=== PATIENT | male | born 1960 | race Caucasian/White ===

== ENCOUNTER 2016-09-02 12:54 | Emergency (ER) | payer BC, OTHER ==
[~2016-09-02] VITALS: Ht 175.3 cm; Wt 80.0 kg
[2016-09-02 12:57] VITALS: TEMP 36.4; Ht 175.3 cm; Wt 80.0 kg
[2016-09-02] MEDS ORDERED: OXYC1TAB3 PO (13:12)
[2016-09-02] MEDS ORDERED: IBUP-103 PO (13:12)
[2016-09-02] MEDS ORDERED: LORAZEPAM 1 MG TAB PO STA (13:33)
--- NOTE | 2016-09-02 14:35 | DIAGNOSTIC IMAGING REPORT ---
MRI LUMBAR SPINE W/O CONTRAST CLINICAL HISTORY: Back pain with left lower extremity radiculopathy. Leg weakness and numbness. TECHNIQUE: Sagittal and axial T1, T2 and STIR images were obtained. COMPARISON STUDY: No previous studies for comparison. OBSERVATIONS: The vertebral bodies and posterior elements appear intact. There is no abnormal bony signal present to suggest a marrow replacement process. L1-2: No disc protrusions or extrusions. No evidence of spinal canal or neural foraminal compromise. L2-3: No disc protrusions or extrusions. No evidence of spinal canal or neural foraminal compromise. L3-4: There is a minimal circumferential disc bulge. There is no spinal or foraminal stenosis L4-5: There is a circumferential disc bulge present. There is no significant spinal stenosis. There is left-sided foraminal narrowing. L5-S1: There is a circumferential disc bulge and small left foraminal disc protrusion. There is no significant spinal stenosis. There is mild left-sided foraminal narrowing. There is facet joint arthropathy. The conus medullaris and cauda equina appear normal. IMPRESSION: 1. Circumferential disc bulge at the L4-5 level. Mild left-sided foraminal narrowing at the L4-5 level 2. Circumferential disc bulge and small left foraminal disc protrusion at the L5-S1 level. Left-sided foraminal narrowing. Electronically signed by: Raymon Moore M.D. 09/02/2016 2:33 PM Dictated Date/Time: 09/02/2016 2:29 PM
[2016-09-02] MEDS ORDERED: HYDR-5688 PO (14:49)
[2016-09-02] MEDS ORDERED: PRED20TA2 PO (14:49)
[2016-09-02 14:55] VITALS: BP 160/90; PULSE 92; O2SAT 95
--- NOTE | 2016-09-04 21:23 | EMERGENCY ROOM VISIT NOTE ---
ED Visit Note First contact with patient: 13:06 Chief Complaint: Lower back pain. History of Present Illness: Mr. Palm is a 56-year-old white male who ambulates into the ED accompanied by his complaining of lumbar back pain. Historically patient reports he's had a previous ruptured disc and had a discectomy approximately 8 or 9 years ago. He reports insisted the surgery he has been feeling well and had no complications. He reports just prior to coming to the ED he was seen by his primary care provider, Dr. Jason Dickson; who recommended that he come to the ED for more definitive evaluation. He reports no testing was done at his primary care providers facility, he was told that he referral to a specialist would be made. Patient reports his pain started approximately 7 days ago. His pain started when he was sleeping and didn't wake him up from sleep. Since that time his pain has been constant but has waxed and waned in intensity. Currently he describes his pain as a stabbing sensation in the L4 to S1 area. He describes his pain as a band sensation in this area but feels like it is more prominent on the left. Currently he rates his discomfort 6/10. The pain does radiate down into the buttocks and thigh on the left. This pain worsens with movement of the spine, palpation and positional changes. He has not identified any alleviating factors related to the pain. He does report he took one of his 's oxycodone tablets last night with minimal relief of his discomfort. Associated with his pain he does report he feels like there is a generalized weakness to the left leg. He denies fevers, chills, sweats, recent direct trauma, recent repetitive trauma , chest pain, shortness of breath, abdominal pain, nausea, vomiting, diarrhea, constipation, rectal bleeding, black/tarry stools, urinary symptoms, flank pain , rectal/genital paresthesias, bowel and bladder dysfunction, lower extremity numbness, denies history of cancer, IV drug use. Review of Systems: As noted above in history of present illness. All body systems were reviewed and found to be negative as noted above. Past Medical History: As previously noted and acid reflux, anxiety. Current Medications: OxyIR, ibuprofen. Allergies to Medications: Patient denies. Social History: Patient is currently employed; he lives with his and feels safe in his home environment; he admits to alcohol and tobacco use. Physical Examination: Vital Signs: Date Time Temp Pulse Resp B/P Pulse Ox O2 Delivery O2 Flow Rate FiO2 09/02/16 14:55 92 17 160/90 95 09/02/16 14:30 92 17 160/90 95 Room Air 09/02/16 12:57 36.4 109 20 184/103 98 Room Air GENERAL: 56-year-old male in mild to moderate distress due to pain, nontoxic- appearing, afebrile and hemodynamically stable. NEUROLOGICAL: Awake, alert and oriented to person, place and time. Answering questions appropriately and following commands. Normal gait. Good hand eye coordination. No focal motor or sensory deficits. SKIN: Warm, dry and pink. No soft tissue eruptions or trauma noted. HEENT: Atraumatic and normocephalic. BACK: No tenderness over the bony cervical and thoracic spine. No CVA tenderness. Moderate tenderness over the left side of the L4 through S1 area. There is also tenderness in the paraspinous muscles without palpable spasm. Decreased range of motion in all movements of the waist due to pain. Positive straight leg raise test at approximately 30. THORAX: Lungs sounds are clear to auscultation and equal bilaterally with symmetrical chest wall. ABDOMEN: Flat, soft and nontender. Positive bowel sounds in all quadrants. No guarding, rigidity or organomegaly. LOWER EXTREMITIES: Moves all extremities well on command and with purpose. No tenderness over the hips, thighs, knees, lower leg, ankle or feet. 2+ patellar and Achilles deep tendon reflexes intact and equal bilaterally. There is a subtle difference in his strength with the left one being slightly weak in hip abduction and abduction in knee flexion and extension. Distal pulses are intact and equal bilaterally. He was able to distinguish light sensations through all dermatomes of the lower leg. No calf tenderness or cords. ED Course: Patient is assessed as noted above. Patient was given 1 mg of Ativan by mouth for MRI. Lumbar Spine MRI: Was read by myself and read by the radiologist shows circumferential disc bulging at L4-L5 with mild left-sided foraminal narrowing and circumferential disc bulging and a small left foraminal disc for trusion at the L5-S1 area with left-sided foraminal narrowing. Patient was offered pain medications multiple times and refused. Patient was educated about tonight's findings and instructed on history and the plan; he verbalizes understanding and agreement with this plan. Clinical Impression: Lumbar back pain with left-sided radiculopathy. Decision-Making: Initially my differential diagnosis I considered herniated disc , spinal abscess, muscle spasm, muscle strain, cauda equina syndrome and other causes. Disposition: Patient discharged home in stable condition accompanied by his ; prior to departure he was reassessed and subjectively reported he was feeling slightly worse and rated his discomfort 7/10. Plan: Patient was prescribed burst course of prednisone and instructed on their use. Patient was placed on a sliding pain scale of ibuprofen, acetaminophen and [place] ; appropriate precautions were discussed concerning narcotic use. Ice and proper lifting and moving techniques were discussed with the patient. Patient was encouraged to keep his upcoming appointment with back surgery for definitive care and treatment. Patient was encouraged return to the ED for worsening pain, fevers, numbness/ tingling in the rectal or genital areas, inability to control bowel and bladder functions, worsening lower extremity weakness/numbness/tingling or any new/ concerning symptoms.
== END 2016-09-02 14:56 | disposition home or self-care (01) ==
LOC: C.EDB 12:57 → C.EDD 14:56
DX: M54.16 Radiculopathy, lumbar region (principal); K21.9 Gastro-esophageal reflux disease without esophagitis; F41.9 Anxiety disorder, unspecified